=== PATIENT | female | born 1985 | race African-American/Black ===

== ENCOUNTER 2018-11-02 15:23 | Emergency (ER) | payer OTHER ==
[~2018-11-02] VITALS: Ht 337.8 cm; Wt 122.5 kg
[~2018-11-02 15:23] MED LIST: ADIPEX-P37.5 MG PO; ANTIVERT25 MG PO; BACTRIM DS TAB1 EACH PO; CARISOPRODOL 3350 MG PO; FLEXERIL PO; MEDROLDOSEPACK PO; NORCO 5-325 TA1 EACH PO; NORFLEX100 MG PO; PERCOCET 5-3251 EACH PO; PHENTERMINE H37.5 MG PO; TRAMADOL 50 MG50 MG PO
[2018-11-02 16:58] LABS: BASOPHILS 0.5 % (0.0-2.0); EOSINOPHILS 3.8 % (0.0-3.0); HEMATOCRIT 39.4 % (37.0-47.0); HEMOGLOBIN 13.2 gm/dL (12.0-15.0); LYMPHOCYTES 47.3 % (24.0-44.0); MCH 30.7 pg (26.0-34.0); MCHC 33.5 g/dL (28.0-37.0); MCV 91.8 fL (80.0-100.0); MONOCYTES 6.2 % (1.0-8.0); PLATELET COUNT 309 thou/uL (150-400); POLYS 42.2 % (36.0-66.0); RBC 4.29 mil/uL (4.20-5.00); RDW 14.4 % (10.5-14.5); WBC 4.8 thou/uL (4.0-11.0)
[2018-11-02 17:16] LABS: LIPASE 75 U/L (73-393); TROPONIN-I <0.06 ng/mL (<0.06)
[2018-11-02 17:56] LABS: ALBUMIN 3.6 g/dL (3.4-5.0); CALCIUM 8.7 mg/dL (8.5-10.1); CREATININE 0.7 mg/dL (0.6-1.0); POTASSIUM 4.8 mmol/L (3.5-5.1); TOTAL BILIRUBIN 0.5 mg/dL (<0.1-1.0); TOTAL PROTEIN 7.2 g/dL (6.4-8.2)
[2018-11-02] MEDS ORDERED: ATIVAN1 MG PO (21:10)
[2018-11-02 22:22] VITALS: BP 127/62
--- NOTE | 2018-11-03 08:05 | EKG ---
[address] [address] ELECTROCARDIOGRAM REPORT Name: JOSEPH MIRELLACHARYVINI Room #: [id number] ������������������ Admission: 11/02/18 ������������������ Attend Phys: Discharge: 11/02/18 ������������������ Date of : 89 Report #: [id number] ����������������������������������������������������������������� [id number] THIS REPORT FOR: //name// [facility] ED Test Date: 2018-11-02 Test Time: 18:47:44 Pat Name: VINI DAI Department: Room: Gender: F Structural Rigger: : 1985 Requested By: Ze Iglesias Order Number: [id number] MD: Lonnie Giles Measurements Intervals [place] Rate: 41 P: 7 DC: 185 QRS: 46 QRSD: 94 T: 31 QT: 459 QTc: 379 Interpretive Statements Sinus bradycardia Otherwise normal tracing No previous ECG available for comparison Electronically Signed On 11-03-2018 8:04:56 CDT by Lonnie Giles [email or web address] ��������������������������������������������� <ELECTRONICALLY SIGNED> ���������������������������������������� By: Lonnie Giles MD, [facility] ��������������������������������������������� 11/03/18 0804 1847 1847 Lonnie Giles MD, FACC /EPI
== END 2018-11-02 22:23 | disposition home or self-care (01) ==
LOC: ER 15:23
PROVIDERS: Physician Assistant
DX: R06.02 Shortness of breath (principal); Z90.49 Acquired absence of other specified parts of digestive tract